=== PATIENT | male | born 1965 | race African-American/Black ===

== ENCOUNTER 2018-05-07 20:39 | Emergency (ER) | payer OTHER ==
--- NOTE | 2018-05-07 21:46 | RAD REPORT ---
EXAM DESCRIPTION: RAD - Chest Pa And Lat (2 Views) - 05/07/2018 9:41 pm CLINICAL HISTORY: COUGH Chest pain. COMPARISON: No comparisons FINDINGS: Emphysematous changes are present with ill-defined interstitial opacities in both upper lo bes. Most likely, this represents interstitial pneumonia. The heart is normal in size. No displaced f ractures. IMPRESSION: Bilateral upper lobe interstitial pneumonia suspected.
[2018-05-07] MEDS ORDERED: NA CHLORIDE 0.9% 500 ML ONE (22:42)
[2018-05-07 23:06] LABS: Absolute Lymphocytes (CBC) 1.8 K/uL (0.7-4.9); Absolute Neutrophil 7.6 K/uL (1.8-8.0); Basophils % 0.9 % (0-1.3); Eosinophils % 0.6 % (0-4.4); Hematocrit 33.4 % (39.6-49.0); Lymphocytes % 17.3 % (15.3-44.8); MPV 8.6 fL (7.6-11.3); Monocytes % 9.8 % (3.3-12.3); RBC Red Blood Cell Count 3.41 M/uL (4.33-5.43)
[2018-05-07 23:16] LABS: Potassium 4.3 mmol/L (3.5-5.1)
--- NOTE | 2018-05-07 23:45 | ER ---
Nurse's Notes [facility] Name: Balbir Marcus Age: 53 yrs Sex: Male : 1965 Arrival Date: 05/07/2018 Time: 20:41 Bed 13 Private MD: Diagnosis: Pneumonia due to other specified bacteria Presentation: 05/07 20:56 Presenting complaint: Patient states: Shortness of breath, cough, congestion since lp1 ; States soreness to chest from coughing; Denies fever. Transition of care: patient was not received from another setting of care. Onset of symptoms was May 07, 2018. Risk Assessment: Do you want to hurt yourself or someone else? Patient reports no desire to harm self or others. Initial Sepsis Screen: Does the patient meet any 2 criteria? No. Patient's initial sepsis screen is negative. Does the patient have a suspected source of infection? No. Patient's initial sepsis screen is negative. Care prior to arrival: None. 20:56 Method Of Arrival: Ambulatory lp1 20:56 Acuity: ADRIANNE 3 lp1 Triage Assessment: 22:05 General: Appears in no apparent distress. comfortable, Behavior is calm, cooperative, cc3 appropriate for age. Respiratory: Reports shortness of breath at rest Onset: The symptoms/episode began/occurred suddenly, the patient has mild shortness of breath. Historical: - Allergies: 20:58 Codeine; lp1 - Home Meds: 20:58 Unable to obtain [Active]; lp1 - PMHx: 20:58 HIV; Hypertension; Hyperlipidemia; lp1 - PSHx: 20:58 None; lp1 - Immunization history:: Adult Immunizations up to date, Flu vaccine is up to date. - Social history:: Smoking status: Patient uses tobacco products, denies chronic smoking, but will smoke occasionally. - Ebola Screening: : No symptoms or risks identified at this time. Screenin:58 Abuse screen: Denies threats or abuse. Denies injuries from another. Nutritional lp1 screening: No deficits noted. Tuberculosis screening: No symptoms or risk factors identified. Fall Risk None identified. Assessment: 21:08 Pain: Denies pain. Cardiovascular: Rhythm is regular. Respiratory: Airway is patent cc3 Respiratory effort is even, unlabored. 22:25 Reassessment: Patient appears in no apparent distress at this time. Patient and/or cc3 family updated on plan of care and expected duration. Pain level reassessed. Patient is alert, oriented x 3, equal unlabored respirations, skin warm/dry/pink. Respiratory: Breath sounds are clear bilaterally. 23:15 Reassessment: Patient appears in no apparent distress at this time. Patient and/or cc3 family updated on plan of care and expected duration. Pain level reassessed. Patient is alert, oriented x 3, equal unlabored respirations, skin warm/dry/pink. 05/08 00:15 Reassessment: Patient appears in no apparent distress at this time. Patient and/or cc3 family updated on plan of care and expected duration. Pain level reassessed. Patient is alert, oriented x 3, equal unlabored respirations, skin warm/dry/pink. Patient discharged home with prescription given. IV cannula removed and patient left ER vitally stable and ambulatory. Vital Signs: 05/07 20:57 BP 136 / 84; Pulse 76; Resp 18; Temp 98.9(O); Pulse Ox 98% on R/A; Weight 81.65 kg; lp1 Height 6 ft. 0 in. (182.88 cm); Pain 0/10; 20:57 Body Mass Index 24.41 (81.65 kg, 182.88 cm) lp1 ED Course: 20:41 Patient arrived in ED. ds1 20:57 Triage completed. lp1 20:57 Arm band placed on right wrist. lp1 21:07 Matthew Barnes PA is PHCP. cp 21:07 Brooks Pierre MD is Attending Physician. cp 21:08 Zoraida Eckert is Primary Nurse. cc3 21:08 Patient has correct armband on for positive identification. Bed in low position. Call cc3 light in reach. air sampling and monitoring on. Pulse ox on. NIBP on. 21:40 X-ray completed. Patient tolerated procedure well. Patient moved back from radiology. sg4 21:41 XRAY Chest Pa And Lat (2 Views) In Process Unspecified. EDMS 22:30 Inserted saline lock: 20 gauge in right forearm, using aseptic technique. Blood lp1 collected. 22:30 Initial lab(s) drawn, by me, sent to lab. First set of blood cultures drawn. lp1 05/08 00:15 No provider procedures requiring assistance completed. IV discontinued, intact, cc3 bleeding controlled, No redness/swelling at site. Pressure dressing applied. Administered Medications: 05/07 22:30 Drug: NS 0.9% 500 ml Route: IV; Rate: bolus; Site: right forearm; cc3 23:15 Follow up: Response: No adverse reaction; IV Status: Completed infusion; IV Intake: cc3 500ml 05/08 00:00 Drug: Bactrim (160 mg-800 mg (DS) 1 tablet Route: PO; cc3 00:15 Follow up: Response: No adverse reaction cc3 Intake: 05/07 23:15 IV: 500ml; Total: 500ml. cc3 Outcome: 23:45 Discharge ordered by MD. samaniego 01 00:15 Discharged to home ambulatory. cc3 Condition: stable Discharge instructions given to patient, Instructed on discharge instructions, follow up and referral plans. medication usage, Demonstrated understanding of instructions, follow-up care, medications, Prescriptions given X 1. 00:20 Patient left the ED. cc3 Signatures: Dispatcher [employer] EDNJ Elaine Bill ds1 Richa Huizar RN RN lp1 Matthew Barnes PA PA Zoraida Vaca cc3 Alma Rascon4
--- NOTE | 2018-05-07 23:45 | EDPHYS ---
Physician Documentation [facility] Name: Balbir Marcus Age: 53 yrs Sex: Male : 1965 Arrival Date: 05/07/2018 Time: 20:41 Bed 13 Private MD: ED Physician Brooks Pierre HPI: 05/07 21:25 This 53 yrs old Black Male presents to ER via Ambulatory with complaints of Shortness cp Of Breath, Chills. 21:25 The patient has shortness of breath at rest. Onset: The symptoms/episode began/occurred cp 3 day(s) ago. Duration: The symptoms are continuous, and are steadily getting worse. Associated signs and symptoms: Pertinent positives: productive cough, chills, Pertinent negatives: diaphoresis, fever. Severity of symptoms: in the emergency department the symptoms are unchanged despite home interventions. Historical: - Allergies: 20:58 Codeine; lp1 - Home Meds: 20:58 Unable to obtain [Active]; lp1 - PMHx: 20:58 HIV; Hypertension; Hyperlipidemia; lp1 - PSHx: 20:58 None; lp1 - Immunization history:: Adult Immunizations up to date, Flu vaccine is up to date. - Social history:: Smoking status: Patient uses tobacco products, denies chronic smoking, but will smoke occasionally. - Ebola Screening: : No symptoms or risks identified at this time. ROS: 21:30 Constitutional: Positive for chills, Negative for body aches, fever, poor PO intake. cp 21:30 Eyes: Negative for injury, pain, redness, and discharge. cp 21:30 ENT: Negative for drainage from ear(s), ear pain, difficulty swallowing, difficulty handling secretions. 21:30 Neck: Negative for pain with movement, pain at rest, stiffness, tenderness. 21:30 Cardiovascular: Positive for chest pain, with cough. 21:30 Respiratory: Positive for cough, shortness of breath, Negative for wheezing. 21:30 Abdomen/GI: Negative for abdominal pain, nausea, vomiting, and diarrhea. 21:30 : Negative for urinary symptoms. 21:30 Skin: Negative for cellulitis, rash. 21:30 Neuro: Negative for altered mental status, headache, weakness. 21:30 All other systems are negative. Exam: 21:33 Constitutional: The patient appears in no acute distress, alert, awake, cp non-diaphoretic, non-toxic, well developed, well nourished. 21:33 Head/Face: Normocephalic, atraumatic. cp 21:33 Eyes: Periorbital structures: appear normal, Conjunctiva: normal, no exudate, no injection, Sclera: no appreciated abnormality, Lids and lashes: appear normal, bilaterally. 21:33 ENT: External ear(s): are unremarkable, Ear canal(s): are normal, clear, TM's: bulging, is not appreciated, bilaterally, dullness, bilaterally, erythema, is not appreciated, bilaterally, Nose: is normal, Mouth: Lips: moist, Oral mucosa: pink and intact, moist, Posterior pharynx: is normal, airway is patent, no erythema, no exudate, Voice: is normal. 21:33 Neck: ROM/movement: is normal, is supple, without pain, no range of motions limitations, no meningismus, no nuchal rigidity. 21:33 Chest/axilla: Inspection: normal, Palpation: is normal, no crepitus, no tenderness. 21:33 Cardiovascular: Rate: normal, Rhythm: regular, Heart sounds: murmur, not appreciated, rub, not appreciated, gallop, not appreciated, Edema: is not appreciated, JVD: is not appreciated. 21:33 Respiratory: the patient does not display signs of respiratory distress, Respirations: normal, no use of accessory muscles, no retractions, no splinting, no tachypnea, labored breathing, is not present, Breath sounds: decreased breath sounds, are not appreciated, rhonchi, that are mild, are heard diffusely, stridor, is not appreciated, wheezing: is not appreciated. 21:33 Abdomen/GI: Inspection: abdomen appears normal, Bowel sounds: active, all quadrants, Palpation: abdomen is soft and non-tender, in all quadrants. 21:33 Back: pain, is absent, ROM is normal. 21:33 Skin: cellulitis, is not appreciated, no rash present. 21:33 Neuro: Orientation: to person, place \T\ time. Mentation: is normal, Cerebellar function: is grossly normal, Motor: moves all fours, strength is normal, Sensation: is normal. Vital Signs: 20:57 BP 136 / 84; Pulse 76; Resp 18; Temp 98.9(O); Pulse Ox 98% on R/A; Weight 81.65 kg; lp1 Height 6 ft. 0 in. (182.88 cm); Pain 0/10; 20:57 Body Mass Index 24.41 (81.65 kg, 182.88 cm) lp1 MDM: 21:07 Patient medically screened. cp 22:00 Differential diagnosis: asthma, Bronchitis Chronic Obstructive Pulmonary Disease cp pneumonia, Pneumothorax Sepsis Unstable Angina. 23:44 Data reviewed: vital signs, nurses notes, lab test result(s), radiologic studies, plain cp films, and as a result, I will discharge patient. 23:44 ED course: VSS. Discussed results of labs and chest xray that showed pneumonia. Patient cp appears non-toxic and no signs respiratory distress. Patient requests discharge and will f/u with PCP tomorrow for reevaluation. 05/07 21:22 Order name: Influenza Screen (a \T\ B); Complete Time: 23:41 cp 05/07 21:22 Order name: Strep; Complete Time: 23:41 cp 05/07 21:22 Order name: CBC with Diff cp 05/07 23:28 Interpretation: Normal except: RBC 3.41; HGB 11.3; HCT 33.4. cp 05/07 21:22 Order name: BMP; Complete Time: 23:19 cp 05/07 23:19 Interpretation: Normal except: CL 110; GLUC 115; BUN 40; CRE 1.38; GFR 66; CA 8.4. cp 05/07 21:50 Order name: Procalcitonin cp 05/07 21:50 Order name: Blood Culture Adult (2) cp 05/07 21:22 Order name: XRAY Chest Pa And Lat (2 Views); Complete Time: 23:19 cp 05/07 21:50 Order name: Lactate; Complete Time: 23:19 cp 05/07 23:28 Order name: Manual Differential EDMS 05/07 23:39 Order name: Throat Culture EDMS Administered Medications: 22:30 Drug: NS 0.9% 500 ml Route: IV; Rate: bolus; Site: right forearm; cc3 23:15 Follow up: Response: No adverse reaction; IV Status: Completed infusion; IV Intake: cc3 500ml 05/08 00:00 Drug: Bactrim (160 mg-800 mg (DS) 1 tablet Route: PO; cc3 00:15 Follow up: Response: No adverse reaction cc3 Disposition: 01:26 Co-signature as Attending Physician, Brooks Pierre MD. pkl Disposition: 05/07/18 23:45 Discharged to Home. Impression: Pneumonia due to other specified bacteria. - Condition is Stable. - Discharge Instructions: Community-Acquired Pneumonia, Adult. - Prescriptions for Bactrim DS 800- 160 mg Oral Tablet - take 1 tablet by ORAL route every 12 hours for 10 days; 20 tablet. - Medication Reconciliation Form, Thank You Letter, Antibiotic Education, Prescription Opioid Use form. - Follow up: Private Physician; When: Tomorrow; Reason: Recheck today's complaints. - Problem is new. - Symptoms have improved. Signatures: Dispatcher [employer] EDMS Brooks Pierre MD MD pkl Richa Huizar RN RN lp1 Matthew Barnes PA PA cp Zoraida Eckert cc3 Corrections: (The following items were deleted from the chart) 05/07 23:19 23:19 Normal except: CL 110; GLUC 115; BUN 40; CRE 1.38; GFR 66. cp cp 05/08 00:20 05/07 23:45 05/07/2018 23:45 Discharged to Home. Impression: Pneumonia due to other cc3 specified bacteria. Condition is Stable. Forms are Medication Reconciliation Form, Thank You Letter, Antibiotic Education, Prescription Opioid Use. Follow up: Private Physician; When: Tomorrow; Reason: Recheck today's complaints. Problem is new. Symptoms have improved. cp
[2018-05-08] MEDS ORDERED: SMZ./TMP. 800/160 MG TABLET ONE (00:10)
[2018-05-08 00:14] LABS: Blood Morphology Comment NOT SEEN (NOT SEEN); Platelet Estimate ADEQ
== END 2018-05-08 00:20 | disposition home or self-care (01) ==
LOC: ER 20:39
DX: J15.8 Pneumonia due to other specified bacteria (principal); Z21 Asymptomatic human immunodeficiency virus [HIV] infection status; F17.210 Nicotine dependence, cigarettes, uncomplicated
CPT/HCPCS: 36415; 71046; 80048; 83605; 84145; 85025; 87040; 87070; 87081; 87804; 96360; 99284